=== PATIENT | male | born 1950 | race Caucasian/White ===

== ENCOUNTER → 2019-12-19 | Outpatient (CLI) | payer MEDICARE ==
[~2019-12-19] MED LIST: REGADENOSON 0.4 MG/5 ML SYRINGE ONE
== END | disposition home or self-care (01) ==
LOC: CVU 07:06
PROVIDERS: ATTEND Internal Medicine Cardiovascular Disease
DX: I08.0 Rheumatic disorders of both mitral and aortic valves (principal); I10 Essential (primary) hypertension; I77.819 Aortic ectasia, unspecified site
CPT/HCPCS: 78452; 93017; 93306; A9502; J2785